=== PATIENT | female | born 1980 | race Caucasian/White ===

== ENCOUNTER 2024-10-22 10:23 | Outpatient (CLI) | payer BC ==
[2024-10-22] MEDS ORDERED: Magnevist 469MG/ML 20 ML VIAL ONE (11:41)
== END 2024-10-22 10:24 | disposition home or self-care (01) ==
LOC: CSHMRI 10:23
PROVIDERS: ATTEND Otolaryngology Plastic Surgery within the Head & Neck
DX: H90.5 Unspecified sensorineural hearing loss (principal)
CPT/HCPCS: 70553